=== PATIENT | female | born 2000 | race Hispanic/Latino ===

== ENCOUNTER 2020-06-29 15:08 | Inpatient (IN) | payer OTHER ==
[~2020-06-29] VITALS: Ht 152.4 cm; Wt 80.0 kg
[2020-06-29] MEDS ORDERED: CLINDAMYCIN IVPB 600MG/50ML 50 ML IV ONE (17:38)
[2020-06-29] MEDS ORDERED: KETOROLAC 30MG VIAL (30MG/ML) ONE (17:38)
[2020-06-29] MEDS ORDERED: HYDROCODONE/ACETAMINOPHEN 5/325 MG TAB ONE (17:39)
[2020-06-29 17:41] LABS: BASOPHILS % (AUTO) 0.4 % (0.0-5.0); EOSINOPHILS % (AUTO) 0.6 % (0.0-8.0); HEMATOCRIT 41.1 % (36-48); LYMPHOCYTES % (AUTO) 25.9 % (21.0-51.0); MEAN CORPUSCULAR HEMOGLOBIN 27.7 pg (27.0-33.0); MEAN CORPUSCULAR HGB CONC 32.8 g/dL (32.0-36.0); MEAN CORPUSCULAR VOLUME 84.4 fL (80-100); MONOCYTES % (AUTO) 8.2 % (3.0-13.0); NEUTROPHILS % (AUTO) 64.4 % (40.0-77.0); PLATELET COUNT (AUTO) 239 K/uL (130-400); RED BLOOD CELL COUNT(AUTO) 4.87 MIL/uL (4.00-5.50); RED CELL DISTRIBUTION WIDTH 15.3 % (11.0-15.5)
[2020-06-29 17:46] LABS: APPEARANCE,URINE Clear (CLEAR); BILIRUBIN,URINE Negative (NEGATIVE); COLOR,URINE Yellow (YELLOW); GLUCOSE, URINE (UA) Negative (NEGATIVE); KETONES,URINE 15 mg/dL (NEGATIVE); LEUKOCYTE ESTERASE ,URINE Trace (NEGATIVE); NITRATE,URINE Negative (NEGATIVE); OCCULT BLOOD,URINE Negative (NEGATIVE); PROTEIN,URINE Negative (NEGATIVE)
[2020-06-29 17:59] LABS: BACTERIA,URINE Rare /HPF (None Seen); RBC,URINE 0-1 /HPF (0-1); SQUAMOUS EPITHELIAL CELL,UR Few /HPF (0-2)
[2020-06-29 19:18] LABS: ALBUMIN 3.8 g/dL (3.5-5.0); BILIRUBIN,TOTAL 0.4 mg/dL (0.2-1.0); CREATININE 0.7 mg/dL (0.5-1.5)
[2020-06-29] MEDS ORDERED: IOHEXOL-350 50ML VIAL IV ONE (19:32)
[2020-06-29] MEDS ORDERED: MORPHINE 2 MG SYG IV PRN (22:15)
[2020-06-29] MEDS: 0.9%NACL 1000ML 1,000 ML IV SCH (22:15)
[2020-06-29] MEDS ORDERED: VANCOMYCIN 1G/250ML KIT 250 ML IV SCH (22:15)
[2020-06-29] MEDS ORDERED: LACTULOSE 20 GM/30 ML UDCUP PO PRN (22:15)
[2020-06-29] MEDS ORDERED: DiphenhydrAMINE HCL 50 MG/ML VIAL IV PRN (22:15)
[2020-06-29] MEDS ORDERED: CEFTRIAXONE 1G VIAL IV SCH (22:15)
[2020-06-29] MEDS ORDERED: MORPHINE 4 MG SYG ONE (22:22)
[2020-06-29] MEDS ORDERED: CEFTRIAXONE 1G VIAL ONE (23:07)
[2020-06-29] MEDS ORDERED: VANCOMYCIN 1G/250ML KIT 250 ML IV ONE (23:07)
[2020-06-30] MEDS: 0.9%NACL 1000ML 1,000 ML IV SCH ×2 (08:15→18:15)
[2020-06-30] MEDS ORDERED: FAMOTIDINE 20MG VIAL IV ONE ×2 (08:48→19:55)
[2020-06-30] MEDS: ENOXAPARIN SODIUM 40 MG/0.4 ML SYRINGE SQ SCH (09:00)
[2020-06-30] MEDS: FAMOTIDINE 20MG VIAL IV SCH ×2 (09:00→21:00)
[2020-06-30] MEDS ORDERED: VANCOMYCIN 1G/250ML KIT 250 ML IV ONE (10:14)
[2020-06-30] MEDS ORDERED: HYDROCODONE/ACETAMINOPHEN 5/325 MG TAB ONE ×2 (10:14→16:56)
[2020-06-30 10:16] LABS: HEMOGLOBIN A1C 5.9 % (4.0-6.0)
[2020-06-30] MEDS ORDERED: HYDROCODONE/ACETAMINOPHEN 5/325 MG TAB PO PRN (10:30)
[2020-06-30] MEDS: VANCOMYCIN 1G 1.25 GM in 0.9% NACL 250ML 250 ML IV SCH ×2 (11:00→22:31)
[2020-06-30] MEDS: ZOSYN 3.375GM+NS 50ML 50 ML IV SCH ×2 (14:45→22:45)
[2020-06-30] MEDS ORDERED: ZOSYN 3.375GM+NS 50ML 50 ML IV ONE ×2 (15:16→19:54)
[2020-06-30 21:12] VITALS: BP 100/59
[2020-06-30] MEDS: HYDROCODONE/ACETAMINOPHEN 5/325 MG TAB PO PRN (23:04)
[2020-07-01 00:03] VITALS: BP 124/74
[2020-07-01 03:56] VITALS: BP 129/70
[2020-07-01] MEDS: 0.9%NACL 1000ML 1,000 ML IV SCH ×3 (04:17→23:49)
[2020-07-01] MEDS: ZOSYN 3.375GM+NS 50ML 50 ML IV SCH ×3 (06:24→23:49)
[2020-07-01 07:00] VITALS: BP 125/61
[2020-07-01] MEDS: ENOXAPARIN SODIUM 40 MG/0.4 ML SYRINGE SQ SCH (09:01)
[2020-07-01] MEDS: FAMOTIDINE 20MG VIAL IV SCH ×2 (09:01→21:43)
[2020-07-01 11:30] VITALS: BP 118/60
[2020-07-01] MEDS ORDERED: VANCOMYCIN 1G 2 GM in 0.9% NACL 500ML IV.SOLN 500 ML IV SCH (11:45)
[2020-07-01 16:06] VITALS: BP 121/69
[2020-07-01 19:55] VITALS: BP 131/70
[2020-07-01] MEDS: HYDROCODONE/ACETAMINOPHEN 5/325 MG TAB PO PRN (21:43)
[2020-07-01] MEDS ORDERED: COMPOUND IV REFRIGERATED 1 EACH IVSOLN MISC PRN (22:15)
[2020-07-01] MEDS: VANCOMYCIN 1G 1.25 GM in 0.9% NACL 250ML 250 ML IV SCH (22:19)
[2020-07-02] VITALS (7 sets, daily range): BP systolic 110–122; BP diastolic 46–71
[2020-07-02 04:45] LABS: HEMATOCRIT 35.8 % (36-48); MEAN CORPUSCULAR HEMOGLOBIN 27.1 pg (27.0-33.0); MEAN CORPUSCULAR HGB CONC 32.1 g/dL (32.0-36.0); MEAN CORPUSCULAR VOLUME 84.4 fL (80-100); RED BLOOD CELL COUNT(AUTO) 4.24 MIL/uL (4.00-5.50)
[2020-07-02 05:02] LABS: POTASSIUM 4.1 mmol/L (3.5-5.1)
[2020-07-02] MEDS: ZOSYN 3.375GM+NS 50ML 50 ML IV SCH ×3 (06:36→22:02)
[2020-07-02] MEDS: ENOXAPARIN SODIUM 40 MG/0.4 ML SYRINGE SQ SCH (08:14)
[2020-07-02] MEDS: FAMOTIDINE 20MG VIAL IV SCH ×2 (08:14→20:47)
[2020-07-02] MEDS: VANCOMYCIN 1G 1.25 GM in 0.9% NACL 250ML 250 ML IV SCH ×2 (08:17→22:03)
[2020-07-02] MEDS: ONDANSETRON 4MG TABLET PO SCH ×3 (10:00→22:00)
[2020-07-02] MEDS: 0.9%NACL 1000ML 1,000 ML IV SCH ×2 (14:54→20:47)
[2020-07-03 03:41] VITALS: BP 108/53
[2020-07-03] MEDS: ONDANSETRON 4MG TABLET PO SCH ×4 (04:00→22:00)
[2020-07-03] MEDS: 0.9%NACL 1000ML 1,000 ML IV SCH ×3 (05:34→21:45)
[2020-07-03] MEDS: ZOSYN 3.375GM+NS 50ML 50 ML IV SCH ×3 (05:34→21:45)
[2020-07-03 06:09] LABS: ALBUMIN 2.7 g/dL (3.5-5.0); BILIRUBIN,TOTAL 0.3 mg/dL (0.2-1.0); CREATININE 1.3 mg/dL (0.5-1.5); POTASSIUM 4.1 mmol/L (3.5-5.1); TOTAL PROTEIN, SERUM 6.1 g/dL (6.0-8.3)
[2020-07-03 06:12] LABS: HEMATOCRIT 36.2 % (36-48); MEAN CORPUSCULAR HEMOGLOBIN 27.5 pg (27.0-33.0); MEAN CORPUSCULAR HGB CONC 32.6 g/dL (32.0-36.0); MEAN CORPUSCULAR VOLUME 84.4 fL (80-100); RED BLOOD CELL COUNT(AUTO) 4.29 MIL/uL (4.00-5.50); WHITE BLOOD COUNT (AUTO) 11.2 K/uL (4.8-10.8)
[2020-07-03 08:33] VITALS: BP 116/54
[2020-07-03] MEDS: VANCOMYCIN 1G 1.25 GM in 0.9% NACL 250ML 250 ML IV SCH ×2 (09:45→20:42)
[2020-07-03] MEDS: FAMOTIDINE 20MG VIAL IV SCH ×2 (09:52→20:40)
[2020-07-03] MEDS: ENOXAPARIN SODIUM 40 MG/0.4 ML SYRINGE SQ SCH (09:53)
[2020-07-03 13:54] VITALS: BP 131/56
[2020-07-03 16:42] VITALS: BP 120/63
[2020-07-03 20:20] VITALS: BP 135/57
[2020-07-04 00:24] VITALS: BP 123/72
[2020-07-04] MEDS: ONDANSETRON 4MG TABLET PO SCH ×4 (04:00→22:00)
[2020-07-04 04:24] VITALS: BP 125/63
[2020-07-04] MEDS: ZOSYN 3.375GM+NS 50ML 50 ML IV SCH ×3 (05:12→23:16)
[2020-07-04 05:46] LABS: HEMATOCRIT 33.7 % (36-48); MEAN CORPUSCULAR HEMOGLOBIN 27.5 pg (27.0-33.0); MEAN CORPUSCULAR HGB CONC 32.9 g/dL (32.0-36.0); MEAN CORPUSCULAR VOLUME 83.6 fL (80-100); RED BLOOD CELL COUNT(AUTO) 4.03 MIL/uL (4.00-5.50); RED CELL DISTRIBUTION WIDTH 15.1 % (11.0-15.5); WHITE BLOOD COUNT (AUTO) 11.3 K/uL (4.8-10.8)
[2020-07-04 07:30] VITALS: BP 127/63
[2020-07-04] MEDS: ENOXAPARIN SODIUM 40 MG/0.4 ML SYRINGE SQ SCH (09:00)
[2020-07-04] MEDS: FAMOTIDINE 20MG VIAL IV SCH ×2 (09:27→21:18)
[2020-07-04] MEDS: VANCOMYCIN 1G 1.25 GM in 0.9% NACL 250ML 250 ML IV SCH ×2 (10:17→21:18)
[2020-07-04 11:00] VITALS: BP 119/72
[2020-07-04] MEDS: 0.9%NACL 1000ML 1,000 ML IV SCH (12:15)
[2020-07-04 16:00] VITALS: BP 117/72
[2020-07-04 20:00] VITALS: BP 116/61
[2020-07-05] VITALS (7 sets, daily range): BP systolic 108–131; BP diastolic 59–70
[2020-07-05] MEDS: ONDANSETRON 4MG TABLET PO SCH ×4 (04:00→20:10)
[2020-07-05] MEDS: 0.9%NACL 1000ML 1,000 ML IV SCH ×4 (05:35→20:10)
[2020-07-05] MEDS: ZOSYN 3.375GM+NS 50ML 50 ML IV SCH ×3 (06:23→23:43)
[2020-07-05] MEDS: ENOXAPARIN SODIUM 40 MG/0.4 ML SYRINGE SQ SCH (08:53)
[2020-07-05] MEDS: FAMOTIDINE 20MG VIAL IV SCH ×2 (08:58→20:09)
[2020-07-05] MEDS: VANCOMYCIN 1G 1.25 GM in 0.9% NACL 250ML 250 ML IV SCH ×2 (09:25→20:10)
[2020-07-06 04:00] VITALS: BP 127/75
[2020-07-06 05:18] LABS: HEMATOCRIT 30.6 % (36-48); MEAN CORPUSCULAR HEMOGLOBIN 27.5 pg (27.0-33.0); MEAN CORPUSCULAR HGB CONC 32.7 g/dL (32.0-36.0); MEAN CORPUSCULAR VOLUME 84.3 fL (80-100); RED BLOOD CELL COUNT(AUTO) 3.63 MIL/uL (4.00-5.50); RED CELL DISTRIBUTION WIDTH 15.2 % (11.0-15.5); WHITE BLOOD COUNT (AUTO) 8.7 K/uL (4.8-10.8)
[2020-07-06 05:26] LABS: CREATININE 1.2 mg/dL (0.5-1.5); POTASSIUM 3.9 mmol/L (3.5-5.1)
[2020-07-06] MEDS: ZOSYN 3.375GM+NS 50ML 50 ML IV SCH ×2 (06:46→16:09)
[2020-07-06 07:00] VITALS: BP 126/78
[2020-07-06] MEDS: FAMOTIDINE 20MG VIAL IV SCH (08:23)
[2020-07-06] MEDS: ENOXAPARIN SODIUM 40 MG/0.4 ML SYRINGE SQ SCH (08:24)
[2020-07-06 11:00] VITALS: BP 120/68
[2020-07-06] MEDS: ONDANSETRON 4MG TABLET PO SCH ×2 (11:13→16:09)
[2020-07-06] MEDS: VANCOMYCIN 1G 1.25 GM in 0.9% NACL 250ML 250 ML IV SCH (11:14)
[2020-07-06 16:00] VITALS: BP_SYST 101; BP_SYST 121; BP_DIAS 42; BP_DIAS 62
[2020-07-06] MEDS: 0.9%NACL 1000ML 1,000 ML IV SCH (16:09)
== END 2020-07-06 18:00 | disposition home or self-care (01) | DRG 158 ==
LOC: EDH 15:08 → OBSVTOIN 21:12 → EDHIP 21:12 → 3CH 06-30 20:21
PROVIDERS: ADMIT Internal Medicine Critical Care Medicine; ATTEND Internal Medicine Critical Care Medicine
DX: M27.2 Inflammatory conditions of jaws (principal); L03.211 Cellulitis of face; Z20.822 Contact with and (suspected) exposure to COVID-19; E66.9 Obesity, unspecified; Z68.34 Body mass index [BMI] 34.0-34.9, adult
CPT/HCPCS: 36415; 70486; 70487; 80048; 80053; 80202; 81001; 81025; 83036; 83605; 85025; 85027; 87040; 87426; G0378; J0696; J1650; J1885; J2270; J2543; J3370; J3490; J7030; J7040; J7050; Q0162; Q9967; U0003

== ENCOUNTER 2024-04-25 20:10 | Emergency (ER) | payer BC, OTHER ==
[~2024-04-25] VITALS: Ht 149.9 cm; Wt 71.2 kg
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
[2024-04-25 21:09] VITALS: BP 122/41; PULSE 69; RESP 20; TEMP 97.9
== END 2024-04-25 21:20 | disposition home or self-care (01) ==
LOC: EDH 20:10
DX: T20.16XA Burn of first degree of forehead and cheek, initial encounter (principal); X10.1XXA Contact with hot food, initial encounter; Y93.89 Activity, other specified; Y92.89 Other specified places as the place of occurrence of the external cause; Y99.8 Other external cause status
CPT/HCPCS: 99281